=== PATIENT | female | born 1980 | race Hispanic/Latino ===

== ENCOUNTER → 2020-01-29 | Outpatient (CLI) | payer MEDICAID | END | disposition home or self-care (01) | LOC: RAH 09:08 | PROVIDERS: ATTEND Internal Medicine | DX: K44.9 Diaphragmatic hernia without obstruction or gangrene (principal); K21.9 Gastro-esophageal reflux disease without esophagitis; R11.0 Nausea; K22.2 Esophageal obstruction | CPT/HCPCS: 74240 ==

== ENCOUNTER → 2020-04-02 | Outpatient (CLI) | payer MEDICAID | END | disposition home or self-care (01) | LOC: EDUNIT# 02-27 11:00 → RAH 10:40 | PROVIDERS: ATTEND Internal Medicine | DX: K22.2 Esophageal obstruction (principal); R11.0 Nausea | CPT/HCPCS: 78264; A9541 ==